=== PATIENT | female | born 1990 | race Caucasian/White ===

== ENCOUNTER 2017-04-22 23:46 | Inpatient (IN) | payer OTHER, BC ==
[2017-04-23] MEDS ORDERED: Methylergonovine 0.2 MG Tab PO PRN (00:22)
[2017-04-23] MEDS ORDERED: Ibuprofen 800 MG Tab PO PRN (00:22)
[2017-04-23] MEDS ORDERED: oxyCODONE 5 MG Tab PO PRN (00:22)
[2017-04-23] MEDS ORDERED: Lanolin 100% Cream 7 GM Tube TOP PRN (00:22)
[2017-04-23] MEDS ORDERED: Witch Hazel Medicated Pads 40/Jar TOP PRN (00:22)
[2017-04-23] MEDS ORDERED: Benzocaine/Menthol 20%-0.5% Spray 78 GM Cannister TOP PRN (00:22)
[2017-04-23] MEDS ORDERED: Docusate Sodium 100 MG Cap PO PRN (00:22)
[2017-04-23] MEDS ORDERED: Hydrocortisone 2.5% Crm 30 GM Tube TOP PRN (00:22)
[2017-04-23] MEDS ORDERED: Bisacodyl 10 MG Supp RECTAL PRN (00:22)
[2017-04-23] MEDS: Acetaminophen 500 MG Tab PO PRN ×2 (00:30→07:46)
--- NOTE | 2017-04-23 01:54 | OR ---
SURGEON: Emily Chacon M.D. DATE OF PROCEDURE: 04/22/2017 PREOPERATIVE DIAGNOSIS: 38-1/7 week intrauterine , spontaneous labor. POSTOPERATIVE DIAGNOSIS: 38-1/7 week intrauterine , spontaneous labor, and precipitous labor. ANESTHESIA: Local. ESTIMATED BLOOD LOSS: Less than 300 mL. FINDINGS: Liveborn female, score 8 and 9 weighing 2780 g. Placenta spontaneous, Schultze intact with 3 vessels. Second-degree perineal laceration was repaired. COMPLICATIONS: None known. DISPOSITION: Stable to LDRP with . BRIEF HISTORY: This is a 26-year-old female. She is G3, P-1-0-1-1. She presented to labor and delivery earlier in the evening and was sent home shortly after 10:00 p.m. and at that time, she was 2 cm dilated, having been observed for several hours and she went home. Contractions became much more intense. She called 911 and EMS came and brought her to the emergency room. I met them in the ambulance. At this time. She was complete at +5 station, but with a tight perineum. DESCRIPTION OF PROCEDURE: With the patient in dorsal lithotomy position, the patient pushed over a less than 2 minute time period to a 5+ station, at which time the head was delivered spontaneously and atraumatically over the perineum with support with subsequent delivery of the 's shoulders and body without any difficulty. The was bulb suctioned by nose and mouth. The cord was clamped x2 and cut after it ceased to pulsate. The infant was handed to the mother in the presence of the weaver [place] and the nurses attending delivery. The was a live born female. score 8 and 9. Weight is 2780 g. Cord blood was not collected as the delivery was in the ambulance. The placenta delivered spontaneously, Schultze intact with 3 vessels. Almost immediately after delivery of the infant, the patient was then transported to the OB unit where inspection of the perineum revealed a second-degree perineal laceration, 20 mL of 1% lidocaine were injected into the perineal tissue. A running lock suture of 2-0 Polysorb was utilized to reapproximate the vaginal mucosa, a running suture of the same for the perineal followed by subcuticular suture. Final sponge, needle, and instrument counts were correct. There were no known complications. The remains in LDRP with the mother in good condition. LIBAN PERALTA /[id number]
[2017-04-23] MEDS ORDERED: Misoprostol 200 MCG Tab PO PRN (02:04)
[2017-04-23] MEDS ORDERED: Lidocaine 1% 50 ML MDV INJECT PRN (02:04)
[2017-04-23] MEDS ORDERED: Water For Irrigation,Sterile 1,000 ML Container IRR PRN (02:04)
[2017-04-23] MEDS ORDERED: Nalbuphine 10 MG/1 ML Vial IVPUSH PRN (02:04)
[2017-04-23] MEDS ORDERED: Butorphanol 1 MG/ML SDV IVPUSH PRN (02:04)
[2017-04-23] MEDS ORDERED: Methylergonovine 0.2 MG/1 ML Amp IM PRN (02:04)
[2017-04-23] MEDS ORDERED: Sodium Chloride 0.9% 10 ML Syringe FLUSH PRN (02:04)
[2017-04-23] MEDS ORDERED: Carboprost Tromethamine 250 MCG/1 ML Amp IM PRN (02:04)
[2017-04-23] MEDS ORDERED: Sodium Chloride 0.9% 2.5 ML Syringe FLUSH PRN (02:04)
[2017-04-23] MEDS ORDERED: Lactated Ringers 1,000 ML IV SCH (02:15)
[2017-04-23] MEDS ORDERED: Oxytocin/0.9 % Sodium Chloride 30 UNIT/500 ML BAG IV SCH (02:15)
--- NOTE | 2017-04-23 08:36 | PCM.PNPP ---
<Kelsy Lowery - Last Filed: 04/23/17 08:37> - General Info Date of Service: 04/23/17 Functional Status: Reports: Pain Controlled, Tolerating Diet, Ambulating, Urinating - Review of Systems General: Denies: Fever, Weakness, Fatigue Pulmonary: Denies: Shortness of Breath, Pleuritic Chest Pain, Cough Cardiovascular: Denies: Chest Pain, Palpitations, Dyspnea on Exertion Gastrointestinal: Denies: Abdominal Pain, Constipation Genitourinary: Denies: Dysuria Psychiatric: Reports: No Symptoms - General Info Date of Service: 04/23/17 - Patient Data Vital Signs - Most Recent: Last Vital Signs Temp 36.8 C 04/23/17 04:00 Pulse 72 04/23/17 04:00 Resp 17 04/23/17 04:00 BP 109/65 04/23/17 04:00 Pulse Ox 97 04/23/17 04:00 Weight - Most Recent: 188 lb Lab Results - Last 24 Hours: Laboratory Results - last 24 hr 04/22/17 04/22/17 Range/Units 23:47 23:47 WBC 14.07 H (4.0-11.0) K/uL RBC 4.80 (4.30-5.90) M/uL Hgb 15.2 (12.0-16.0) g/dL Hct 43.4 (36.0-46.0) % MCV 90.4 (80.0-98.0) fL MCH 31.7 (27.0-32.0) pg MCHC 35.0 (31.0-37.0) g/dL RDW Std Deviation 44.1 (28.0-62.0) fl RDW Coeff of Jeanmarie 13 (11.0-15.0) % Plt Count 206 (150-400) K/uL MPV 11.30 (7.40-12.00) fL Nucleated RBC % 0.0 /100WBC Nucleated RBCs # 0 K/uL Blood Type O POSITIVE Antibody Screen NEGATIVE Med Orders - Current: Current Medications Acetaminophen (Tylenol Extra Strength) 1,000 mg PO Q4H PRN PRN Reason: Pain Last Admin: 04/23/17 07:46 Dose: 1,000 mg Benzocaine/Menthol (Dermoplast Pain Relief 20%-0.5% [place]) 78 gm TOP ASDIRECTED PRN PRN Reason: Perineal Comfort Measure Last Admin: 04/23/17 02:51 Dose: 1 canister Bisacodyl (Dulcolax) 10 mg RECTAL .ONCE PRN PRN Reason: Constipation Butorphanol Tartrate (Stadol) 1 mg IVPUSH Q1H PRN PRN Reason: Pain Carboprost Tromethamine (Hemabate Ds) 250 mcg IM ASDIRECTED PRN PRN Reason: Post Hemorrhage Docusate Sodium (Colace) 100 mg PO BID PRN PRN Reason: Constipation Emollient Ointment (Lansinoh Hpa) 0 gm TOP ASDIRECTED PRN PRN Reason: Sore Nipples Hydrocortisone (Proctozone-Hc 2.5% Crm) 1 gm TOP .Q6H PRN PRN Reason: Itching Lactated Ringer's (Ringers, Lactated) 1,000 mls @ 150 mls/hr IV ASDIRECTED [facility] Oxytocin/Sodium Chloride (Oxytocin 30 Unit/500 Ml-Ns) 30 unit in 500 mls @ 999 mls/hr IV TITRATE [facility] Ibuprofen (Motrin) 800 mg PO Q6H PRN PRN Reason: Pain Lidocaine HCl (Xylocaine 1%) 50 ml INJECT .ONCE PRN PRN Reason: Laceration repair Methylergonovine Maleate (Methergine) 0.2 mg PO ASDIRECTED PRN PRN Reason: excessive vaginal bleeding Methylergonovine Maleate (Methergine) 0.2 mg IM ASDIRECTED PRN PRN Reason: Post Hemorrhage Misoprostol (Cytotec) 200 mcg PO .ONCE PRN PRN Reason: Post Hemorrhage Nalbuphine HCl (Nubain) 10 mg IVPUSH Q1H PRN PRN Reason: Pain (severe 7-10) Oxycodone HCl (Oxycodone) 5 mg PO Q2H PRN PRN Reason: Pain Sodium Chloride (Saline Flush) 10 ml FLUSH ASDIRECTED PRN PRN Reason: Keep Vein Open Sodium Chloride (Saline Flush) 2.5 ml FLUSH ASDIRECTED PRN PRN Reason: Keep Vein Open Sterile Water (Sterile Water For Irrigation) 1,000 ml IRR ASDIRECTED PRN PRN Reason: delivery Witch Tyra (Tucks) 1 pad TOP ASDIRECTED PRN PRN Reason: comfort care Last Admin: 04/23/17 02:52 Dose: 1 tub - Infant Interaction Disposition, : [place] in Room with Family Infant Feeding: Attempted ; Nursed Fair/Poor - Recovery Exam Fundal Tone: Firm Fundal Level: At Umbilicus Fundal Placement: Midline Lochia Amount: Small Episiotomy/Laceration: Approximated Bladder Status: Voiding Urinary Elimination: Voided - Exam General: Alert, Oriented Neck: Supple Lungs: Clear to Auscultation, Normal Respiratory Effort Cardiovascular: Regular Rate, Regular Rhythm GI/Abdominal Exam: Normal Bowel Sounds, Soft, Non-Tender, No Organomegaly, No Distention, No Abnormal Bruit, No Mass, Pelvis Stable Psy/Mental Status: Alert, Normal Affect, Normal Mood - Problem List & Annotations (1) Precipitate labour, delivered SNOMED Code(s): 63198929 Code(s): O62.3 - PRECIPITATE LABOR Status: Acute Current Visit: Yes - Problem List Review Problem List Initiated/Reviewed/Updated: Yes - Assessment Assessment:: PPD #1 from vaginal delivery, precipitous labor. Minimal pain and lochia. Breast feeding well. Aim for discharge tomorrow AM - Plan Plan:: Continue routine post- cares. Anticipate discharge home tomorrow. <Liza Martinez - Last Filed: 04/23/17 18:41> - Patient Data Vital Signs - Most Recent: Last Vital Signs Temp 36.9 C 04/23/17 13:19 Pulse 73 04/23/17 13:19 Resp 14 04/23/17 13:19 BP 139/75 04/23/17 13:19 Pulse Ox 96 04/23/17 13:19 I&O - Last 24 Hours: Intake & Output 04/23/17 04/23/17 04/23/17 06:59 14:59 22:59 Output Total 600 Balance -600 Lab Results - Last 24 Hours: Laboratory Results - last 24 hr 04/22/17 04/22/17 Range/Units 23:47 23:47 WBC 14.07 H (4.0-11.0) K/uL RBC 4.80 (4.30-5.90) M/uL Hgb 15.2 (12.0-16.0) g/dL Hct 43.4 (36.0-46.0) % MCV 90.4 (80.0-98.0) fL MCH 31.7 (27.0-32.0) pg MCHC 35.0 (31.0-37.0) g/dL RDW Std Deviation 44.1 (28.0-62.0) fl RDW Coeff of Jeanmarie 13 (11.0-15.0) % Plt Count 206 (150-400) K/uL MPV 11.30 (7.40-12.00) fL Nucleated RBC % 0.0 /100WBC Nucleated RBCs # 0 K/uL Blood Type O POSITIVE Antibody Screen NEGATIVE Med Orders - Current: Current Medications Acetaminophen (Tylenol Extra Strength) 1,000 mg PO Q4H PRN PRN Reason: Pain Last Admin: 04/23/17 07:46 Dose: 1,000 mg Benzocaine/Menthol (Dermoplast Pain Relief 20%-0.5% [place]) 78 gm TOP ASDIRECTED PRN PRN Reason: Perineal Comfort Measure Last Admin: 04/23/17 02:51 Dose: 1 canister Bisacodyl (Dulcolax) 10 mg RECTAL .ONCE PRN PRN Reason: Constipation Butorphanol Tartrate (Stadol) 1 mg IVPUSH Q1H PRN PRN Reason: Pain Carboprost Tromethamine (Hemabate Ds) 250 mcg IM ASDIRECTED PRN PRN Reason: Post Hemorrhage Docusate Sodium (Colace) 100 mg PO BID PRN PRN Reason: Constipation Emollient Ointment (Lansinoh Hpa) 0 gm TOP ASDIRECTED PRN PRN Reason: Sore Nipples Last Admin: 04/23/17 10:57 Dose: 7 gm Hydrocortisone (Proctozone-Hc 2.5% Crm) 1 gm TOP .Q6H PRN PRN Reason: Itching Lactated Ringer's (Ringers, Lactated) 1,000 mls @ 150 mls/hr IV ASDIRECTED [facility] Oxytocin/Sodium Chloride (Oxytocin 30 Unit/500 Ml-Ns) 30 unit in 500 mls @ 999 mls/hr IV TITRATE [facility] Last Admin: 04/23/17 00:30 Dose: 999 mls/hr Ibuprofen (Motrin) 800 mg PO Q6H PRN PRN Reason: Pain Lidocaine HCl (Xylocaine 1%) 50 ml INJECT .ONCE PRN PRN Reason: Laceration repair Last Admin: 04/23/17 00:30 Dose: 50 ml Methylergonovine Maleate (Methergine) 0.2 mg PO ASDIRECTED PRN PRN Reason: excessive vaginal bleeding Methylergonovine Maleate (Methergine) 0.2 mg IM ASDIRECTED PRN PRN Reason: Post Hemorrhage Misoprostol (Cytotec) 200 mcg PO .ONCE PRN PRN Reason: Post Hemorrhage Nalbuphine HCl (Nubain) 10 mg IVPUSH Q1H PRN PRN Reason: Pain (severe 7-10) Oxycodone HCl (Oxycodone) 5 mg PO Q2H PRN PRN Reason: Pain Last Admin: 04/23/17 00:30 Dose: 5 mg Sodium Chloride (Saline Flush) 10 ml FLUSH ASDIRECTED PRN PRN Reason: Keep Vein Open Sodium Chloride (Saline Flush) 2.5 ml FLUSH ASDIRECTED PRN PRN Reason: Keep Vein Open Sterile Water (Sterile Water For Irrigation) 1,000 ml IRR ASDIRECTED PRN PRN Reason: delivery Last Admin: 04/23/17 00:30 Dose: 1,000 ml Witch Tyra (Tucks) 1 pad TOP ASDIRECTED PRN PRN Reason: comfort care Last Admin: 04/23/17 02:52 Dose: 1 tub - Assessment Assessment:: Agree with above assessment - Plan Plan:: Patient reviewed independently- agree with plan.
--- NOTE | 2017-04-24 08:22 | PCM.PNPP ---
- General Info Date of Service: 04/24/17 Functional Status: Reports: Pain Controlled, Tolerating Diet, Ambulating, Urinating - Review of Systems General: Denies: Fever, Malaise, Chills Pulmonary: Reports: Cough. Denies: Shortness of Breath, Pleuritic Chest Pain Cardiovascular: Denies: Chest Pain, Palpitations Genitourinary: Denies: Frequency, Burning, Urgency, Incontinence - General Info Date of Service: 04/24/17 - Patient Data Vital Signs - Most Recent: Last Vital Signs Temp 36.5 C 04/24/17 04:00 Pulse 76 04/23/17 20:00 Resp 16 04/24/17 04:00 BP 113/75 04/24/17 04:00 Pulse Ox 97 04/24/17 04:00 Weight - Most Recent: 188 lb Lab Results - Last 24 Hours: Laboratory Results - last 24 hr 04/24/17 Range/Units 05:23 Hgb 12.3 (12.0-16.0) g/dL Hct 35.7 L (36.0-46.0) % Med Orders - Current: Current Medications Acetaminophen (Tylenol Extra Strength) 1,000 mg PO Q4H PRN PRN Reason: Pain Last Admin: 04/23/17 07:46 Dose: 1,000 mg Benzocaine/Menthol (Dermoplast Pain Relief 20%-0.5% [place]) 78 gm TOP ASDIRECTED PRN PRN Reason: Perineal Comfort Measure Last Admin: 04/23/17 02:51 Dose: 1 canister Bisacodyl (Dulcolax) 10 mg RECTAL .ONCE PRN PRN Reason: Constipation Butorphanol Tartrate (Stadol) 1 mg IVPUSH Q1H PRN PRN Reason: Pain Carboprost Tromethamine (Hemabate Ds) 250 mcg IM ASDIRECTED PRN PRN Reason: Post Hemorrhage Docusate Sodium (Colace) 100 mg PO BID PRN PRN Reason: Constipation Last Admin: 04/23/17 21:01 Dose: 100 mg Emollient Ointment (Lansinoh Hpa) 0 gm TOP ASDIRECTED PRN PRN Reason: Sore Nipples Last Admin: 04/23/17 10:57 Dose: 7 gm Hydrocortisone (Proctozone-Hc 2.5% Crm) 1 gm TOP .Q6H PRN PRN Reason: Itching Lactated Ringer's (Ringers, Lactated) 1,000 mls @ 150 mls/hr IV ASDIRECTED [facility] Oxytocin/Sodium Chloride (Oxytocin 30 Unit/500 Ml-Ns) 30 unit in 500 mls @ 999 mls/hr IV TITRATE [facility] Last Admin: 04/23/17 00:30 Dose: 999 mls/hr Ibuprofen (Motrin) 800 mg PO Q6H PRN PRN Reason: Pain Lidocaine HCl (Xylocaine 1%) 50 ml INJECT .ONCE PRN PRN Reason: Laceration repair Last Admin: 04/23/17 00:30 Dose: 50 ml Methylergonovine Maleate (Methergine) 0.2 mg PO ASDIRECTED PRN PRN Reason: excessive vaginal bleeding Methylergonovine Maleate (Methergine) 0.2 mg IM ASDIRECTED PRN PRN Reason: Post Hemorrhage Misoprostol (Cytotec) 200 mcg PO .ONCE PRN PRN Reason: Post Hemorrhage Nalbuphine HCl (Nubain) 10 mg IVPUSH Q1H PRN PRN Reason: Pain (severe 7-10) Oxycodone HCl (Oxycodone) 5 mg PO Q2H PRN PRN Reason: Pain Last Admin: 04/23/17 00:30 Dose: 5 mg Sodium Chloride (Saline Flush) 10 ml FLUSH ASDIRECTED PRN PRN Reason: Keep Vein Open Sodium Chloride (Saline Flush) 2.5 ml FLUSH ASDIRECTED PRN PRN Reason: Keep Vein Open Sterile Water (Sterile Water For Irrigation) 1,000 ml IRR ASDIRECTED PRN PRN Reason: delivery Last Admin: 04/23/17 00:30 Dose: 1,000 ml Witch Tyra (Tucks) 1 pad TOP ASDIRECTED PRN PRN Reason: comfort care Last Admin: 04/23/17 02:52 Dose: 1 tub - Infant Interaction Disposition, : in Room with Family Infant Feeding: Attempted ; Nursed Fair/Poor, Continues to Breastfeed Support Person: - Recovery Exam Fundal Tone: Firm Fundal Level: 1 Fingerbreadths Below Umbilicus Fundal Placement: Midline Lochia Amount: Scant Lochia Color: Rubra/Red Perineum Description: Intact, Minimal Bruising/Swelling Episiotomy/Laceration: Approximated Bladder Status: Voiding Urinary Elimination: Voided - Exam General: Alert, Oriented Lungs: Clear to Auscultation, Normal Respiratory Effort Cardiovascular: Regular Rate, Regular Rhythm GI/Abdominal Exam: Normal Bowel Sounds Extremities: Non-Tender, Pedal Edema Psy/Mental Status: Alert, Normal Affect, Normal Mood - Problem List Review Problem List Initiated/Reviewed/Updated: Yes - Assessment Assessment:: PPD#2 s/p , stable and afebrile Stable for discharge - Plan Plan:: Discharge instructions reviewed Nothing in the vagina for 6 weeks Continue PNV Bleeding and infection precautions reviewed May use OTC pain meds PRN Follow up in the clinic in 6 weeks
[2017-04-24 10:04] VITALS: BP 119/76
== END 2017-04-24 11:25 | disposition home or self-care (01) | DRG 560 ==
LOC: MW.OBCHECK 23:46 → OBSVTOIN 23:48 → MW.OB 23:48
PROVIDERS: ADMIT Obstetrics & Gynecology; ATTEND Obstetrics & Gynecology
PROC: 10E0XZZ Delivery of Products of Conception, External Approach (ICD-10-PCS; principal; 2017-04-22)
PROC: 0KQM0ZZ Repair Perineum Muscle, Open Approach (ICD-10-PCS; 2017-04-22)
DX: O70.1 Second degree perineal laceration during delivery (principal); Z3A.38 38 weeks gestation of pregnancy; Z37.0 Single live birth; Z34.93 Encounter for supervision of normal pregnancy, unspecified, third trimester
CPT/HCPCS: 36415; 59025; 59409; 85014; 85018; 85027; 86850; 86900; 86901; A9270-GY; J2590

== ENCOUNTER 2018-04-11 18:46 | Inpatient (IN) | payer BC ==
[2018-04-11] MEDS ORDERED: Water For Irrigation,Sterile 1,000 ML Container IRR PRN (19:57)
[2018-04-11] MEDS ORDERED: Misoprostol 200 MCG Tab PO PRN (19:57)
[2018-04-11] MEDS ORDERED: Sodium Chloride 0.9% 10 ML Syringe FLUSH PRN (19:57)
[2018-04-11] MEDS ORDERED: Lidocaine 1% 50 ML MDV INJECT PRN (19:57)
[2018-04-11] MEDS ORDERED: Tranexamic Acid 1,000 MG in Sodium Chloride 0.9% 100 ML IV PRN (19:57)
[2018-04-11] MEDS ORDERED: Butorphanol 1 MG/ML SDV IVPUSH PRN (19:57)
[2018-04-11] MEDS ORDERED: Sodium Chloride 0.9% 2.5 ML Syringe FLUSH PRN (19:57)
[2018-04-11] MEDS ORDERED: Carboprost Tromethamine 250 MCG/1 ML Amp IM PRN (19:57)
[2018-04-11] MEDS ORDERED: Methylergonovine 0.2 MG/1 ML Amp IM PRN ×2 (19:57→23:19)
[2018-04-11] MEDS ORDERED: Nalbuphine 10 MG/1 ML Vial IVPUSH PRN (19:57)
[2018-04-11] MEDS ORDERED: Oxytocin/0.9 % Sodium Chloride 30 UNIT/500 ML BAG IV SCH (20:00)
[2018-04-11] MEDS: Lactated Ringers 1,000 ML IV SCH ×3 (20:25→22:57)
--- NOTE | 2018-04-11 21:59 | PCM.PREANE ---
Preanesthetic Assessment - Anesthesia/Transfusion/Family Hx Anesthesia History: Prior Anesthesia Without Reaction Family History of Anesthesia Reaction: No Transfusion History: No Prior Transfusion(s) - Review of Systems General: No Symptoms Pulmonary: No Symptoms Cardiovascular: No Symptoms Gastrointestinal: No Symptoms Neurological: No Symptoms Other: Reports: None - Physical Assessment NPO Status Date: 04/11/18 NPO Status Time: 12:00 Height: 1.63 m Weight: 90.719 kg ASA Class: 1 Mental Status: Alert & Oriented x3 Dentition: Reports: Normal Dentition ROM/Head Extension: Full - Lab Values: Laboratory Last Values WBC 12.04 K/uL (4.0-11.0) H 04/11/18 20:15 RBC 4.67 M/uL (4.30-5.90) 04/11/18 20:15 Hgb 14.6 g/dL (12.0-16.0) 04/11/18 20:15 Hct 41.8 % (36.0-46.0) 04/11/18 20:15 MCV 89.5 fL (80.0-98.0) 04/11/18 20:15 MCH 31.3 pg (27.0-32.0) 04/11/18 20:15 MCHC 34.9 g/dL (31.0-37.0) 04/11/18 20:15 RDW Std Deviation 43.0 fl (28.0-62.0) 04/11/18 20:15 RDW Coeff of Jeanmarie 13 % (11.0-15.0) 04/11/18 20:15 Plt Count 199 K/uL (150-400) 04/11/18 20:15 MPV 10.90 fL (7.40-12.00) 04/11/18 20:15 Nucleated RBC % 0.0 /100WBC 04/11/18 20:15 Nucleated RBCs # 0 K/uL 04/11/18 20:15 Blood Type O POSITIVE 04/11/18 20:15 Antibody Screen NEGATIVE 04/11/18 20:15 - Allergies Allergies/Adverse Reactions: Allergies Allergy/AdvReac Type Severity Reaction Status Date / Time latex Allergy Hives Verified 04/22/17 17:32 - Acknowledgements Anesthesia Type Planned: Epidural Pt an Appropriate Candidate for the Planned Anesthesia: Yes Alternatives and Risks of Anesthesia Discussed w Pt/Guardian: Yes Pt/Guardian Understands and Agrees with Anesthesia Plan: Yes PreAnesthesia Questionnaire [employer]IC[employer] History: Reports: , Spontaneous - HOME MEDS Home Medications: Home Meds Vits #93/Iron Fum/FA [ Formula Tablet] 1 each PO DAILY [History] Ranitidine [Zantac] 150 mg PO BID PRN 04/11/18 [History] - CURRENT (IN HOUSE) MEDS Current Meds: Current Medications Butorphanol Tartrate (Stadol) 1 mg IVPUSH ASDIRECTED PRN PRN Reason: Pain Carboprost Tromethamine (Hemabate Ds) 250 mcg IM ASDIRECTED PRN PRN Reason: Post Hemorrhage Tranexamic Acid 1,000 mg/ (Sodium Chloride) 110 mls @ 660 mls/hr IV ONETIME PRN PRN Reason: Bleeding Lactated Ringer's (Ringers, Lactated) 1,000 mls @ 150 mls/hr IV ASDIRECTED [facility] Last Admin: 04/11/18 21:56 Dose: 999 mls/hr Oxytocin/Sodium Chloride (Oxytocin 30 Unit/500 Ml-Ns) 30 unit in 500 mls @ 999 mls/hr IV TITRATE [facility] Lidocaine HCl (Xylocaine 1%) 50 ml INJECT ONETIME PRN PRN Reason: Laceration repair Methylergonovine Maleate (Methergine) 0.2 mg IM ASDIRECTED PRN PRN Reason: Post Hemorrhage Misoprostol (Cytotec) 200 mcg PO ONETIME PRN PRN Reason: Post Hemorrhage Nalbuphine HCl (Nubain) 10 mg IVPUSH ASDIRECTED PRN PRN Reason: Pain (severe 7-10) Sodium Chloride (Saline Flush) 10 ml FLUSH ASDIRECTED PRN PRN Reason: Keep Vein Open Sodium Chloride (Saline Flush) 2.5 ml FLUSH ASDIRECTED PRN PRN Reason: Keep Vein Open Sterile Water (Sterile Water For Irrigation) 1,000 ml IRR ASDIRECTED PRN PRN Reason: delivery Discontinued Medications Fentanyl/Bupivacaine HCl (Fsglnhgt-Hsjur-Sa 2 Mcg/Ml-0.125%) Confirm Administered Dose 100 mls @ as directed [facility] ONE Stop: 04/11/18 21:32
--- NOTE | 2018-04-11 22:02 | PCM.PRNOTE ---
- Free Text/Narrative Note: Anes Note Patient request epidural for L&D. Sitting position. Level L3-L4. Midline approach. Sterile technique. Chloraprep to lumbar region. Sterile fenestrated drape applied. Epidural space easily achieved single attempt using CARIN technique. CARIN at 4 cm. Cath threaded 5 cm with ease. Sterile dressing applied. Test dose negative. Loading dose 10 cc 0.125% ropivicain with 2 mcg/cc fentanyl in slow divided doses. Pump started at 8 cc/hr with 6 cc q 20 min prn bolus. 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
[2018-04-11] MEDS ORDERED: Docusate Sodium 100 MG Cap PO PRN (23:19)
[2018-04-11] MEDS ORDERED: Acetaminophen 500 MG Tab PO PRN ×2 (23:19)
[2018-04-11] MEDS ORDERED: Witch Hazel Medicated Pads 40/Jar TOP PRN (23:19)
[2018-04-11] MEDS ORDERED: Bisacodyl 10 MG Supp RECTAL PRN (23:19)
[2018-04-11] MEDS ORDERED: Ibuprofen 400 MG Tab PO PRN (23:19)
[2018-04-11] MEDS ORDERED: Lanolin 100% Cream 7 GM Tube TOP PRN (23:19)
[2018-04-11] MEDS ORDERED: Benzocaine/Menthol 20%-0.5% Spray 78 GM Cannister TOP PRN (23:19)
[2018-04-11] MEDS ORDERED: oxyCODONE 5 MG Tab PO PRN (23:19)
--- NOTE | 2018-04-11 23:21 | PCM.DEL ---
L & D Note - General Info Date of Service: 04/11/18 Mother's Due Date: 04/22/18 - Delivery Note Labor: Spontaneous Delivery Outcome: Livebirth Infant Delivery Method: Spontaneous Vaginal Delivery-Single Delivery Mode: Spontaneous Presentation: Right Occiput Posterior (ROP) Nuchal Cord: None Anesthesia Type: Epidural Amniotic Fluid Description: Clear Episiotomy Type: None Laceration: 2nd Degree Suture type: Vicryl Suture size: 3-0 Placenta: Intact, Spontaneous Cord: 3 Vessels Estimated Blood Loss: 300 Resuscitation Needed: No : Stimulated, [place] Used Provider: Emily Chacon (Sebastianbryanna Farmeron, MS4) Score 1 min: 8 Score 5 min: 9 Delivery Comments (Free Text/Narrative):: Delivery of viable female infant weighing 6 pounds, 0 ounces. - General Info Date of Service: 04/11/18 Functional Status: Reports: Pain Controlled - Patient Data Weight - Most Recent: 200 lb 0.004 oz Lab Results Last 24 Hours: Laboratory Results - last 24 hr 04/11/18 04/11/18 Range/Units 20:15 20:15 WBC 12.04 H (4.0-11.0) K/uL RBC 4.67 (4.30-5.90) M/uL Hgb 14.6 (12.0-16.0) g/dL Hct 41.8 (36.0-46.0) % MCV 89.5 (80.0-98.0) fL MCH 31.3 (27.0-32.0) pg MCHC 34.9 (31.0-37.0) g/dL RDW Std Deviation 43.0 (28.0-62.0) fl RDW Coeff of Jeanmarie 13 (11.0-15.0) % Plt Count 199 (150-400) K/uL MPV 10.90 (7.40-12.00) fL Nucleated RBC % 0.0 /100WBC Nucleated RBCs # 0 K/uL Blood Type O POSITIVE Antibody Screen NEGATIVE Med Orders - Current: Current Medications Butorphanol Tartrate (Stadol) 1 mg IVPUSH ASDIRECTED PRN PRN Reason: Pain Carboprost Tromethamine (Hemabate Ds) 250 mcg IM ASDIRECTED PRN PRN Reason: Post Hemorrhage Tranexamic Acid 1,000 mg/ (Sodium Chloride) 110 mls @ 660 mls/hr IV ONETIME PRN PRN Reason: Bleeding Lactated Ringer's (Ringers, Lactated) 1,000 mls @ 150 mls/hr IV ASDIRECTED [facility] Last Admin: 04/11/18 22:57 Dose: 150 mls/hr Oxytocin/Sodium Chloride (Oxytocin 30 Unit/500 Ml-Ns) 30 unit in 500 mls @ 999 mls/hr IV TITRATE [facility] Last Admin: 04/11/18 22:51 Dose: 999 mls/hr Lidocaine HCl (Xylocaine 1%) 50 ml INJECT ONETIME PRN PRN Reason: Laceration repair Methylergonovine Maleate (Methergine) 0.2 mg IM ASDIRECTED PRN PRN Reason: Post Hemorrhage Misoprostol (Cytotec) 200 mcg PO ONETIME PRN PRN Reason: Post Hemorrhage Nalbuphine HCl (Nubain) 10 mg IVPUSH ASDIRECTED PRN PRN Reason: Pain (severe 7-10) Sodium Chloride (Saline Flush) 10 ml FLUSH ASDIRECTED PRN PRN Reason: Keep Vein Open Sodium Chloride (Saline Flush) 2.5 ml FLUSH ASDIRECTED PRN PRN Reason: Keep Vein Open Sterile Water (Sterile Water For Irrigation) 1,000 ml IRR ASDIRECTED PRN PRN Reason: delivery Last Admin: 04/11/18 22:47 Dose: 1,000 ml Discontinued Medications Fentanyl/Bupivacaine HCl (Dguxpdrr-Lkrjv-Ik 2 Mcg/Ml-0.125%) Confirm Administered Dose 100 mls @ as directed STACY [facility] ONE Stop: 04/11/18 21:32 - Problem List Review Problem List Initiated/Reviewed/Updated: Yes - Assessment Assessment:: Spontaneous vaginal delivery with second degree laceration at 38 weeks and 3 days gestation - Plan Plan:: Routine cares
[2018-04-12] MEDS: Ibuprofen 800 MG Tab PO PRN ×4 (01:24→23:28)
--- NOTE | 2018-04-12 04:55 | OR ---
SURGEON: Emily Chacon M.D. DATE OF PROCEDURE: ADDENDUM: The infant was handed to the mother in the presence of the nurse attending delivery. The is a liveborn female, score 8 and 9, weighing 6 pounds 0 ounces, 2710 g. After the cord had ceased to pulsate, it was doubly clamped and cut. Cord blood was collected for cord ABGs as well as routine cord blood sampling. Pitocin was initiated after delivery of the infant to assist with delivery of the placenta which was delivered spontaneously. Schultze intact with 3 vessels. Upon inspection of the pelvis and perineum, there was a small second-degree perineal laceration. There were no vaginal sidewall, cervical, rectal, or periurethral lacerations. The laceration was repaired using a running locked suture of 3-0 Vicryl for the vaginal mucosa, deep running suture on the perineum of the same and a running subcuticular suture of 3-0 Vicryl for the skin. Final sponge, needle, and instrument counts were correct. There were no known complications. Mother and baby remained in LDRP in good condition. LIBAN / FABIAN /[id number]
--- NOTE | 2018-04-12 06:59 | PCM48HPAN ---
Post Anesthesia Note - EVALUATION WITHIN 48HRS OF ANESTHETIC Vital Signs in Normal Range: Yes Patient Participated in Evaluation: Yes Respiratory Function Stable: Yes Airway Patent: Yes Cardiovascular Function Stable: Yes Hydration Status Stable: Yes Pain Control Satisfactory: Yes Nausea and Vomiting Control Satisfactory: Yes Mental Status Recovered: Yes Resp Rate: 18
--- NOTE | 2018-04-12 06:59 | PCM.POSTAN ---
POST ANESTHESIA ASSESSMENT - MENTAL STATUS Mental Status: Alert - RESPIRATORY Respiratory Status: Respiratory Rate WNL - CARDIOVASCULAR CV Status: Pulse Rate WNL - GASTROINTESTINAL GI Status: No Symptoms - POST OP HYDRATION Hydration Status: Adequate & Stable
--- NOTE | 2018-04-12 08:06 | PCM.PNPP ---
<Kelsy Lowery - Last Filed: 04/12/18 08:06> - General Info Date of Service: 04/12/18 Functional Status: Reports: Pain Controlled, Tolerating Diet, Ambulating, Urinating - Review of Systems General: Denies: Fever, Weakness, Fatigue Pulmonary: Denies: Shortness of Breath, Pleuritic Chest Pain, Cough Cardiovascular: Denies: Chest Pain, Palpitations, Dyspnea on Exertion Gastrointestinal: Denies: Abdominal Pain Genitourinary: Denies: Dysuria - General Info Date of Service: 04/12/18 - Patient Data Vital Signs - Most Recent: Last Vital Signs Temp 36.6 C 04/12/18 06:56 Pulse 79 04/12/18 06:56 Resp 18 04/12/18 06:59 BP 118/71 04/12/18 06:56 Pulse Ox 96 04/12/18 06:56 Weight - Most Recent: 90.719 kg Lab Results - Last 24 Hours: Laboratory Results - last 24 hr 04/11/18 04/11/18 04/11/18 Range/Units 20:15 20:15 22:50 WBC 12.04 H (4.0-11.0) K/uL RBC 4.67 (4.30-5.90) M/uL Hgb 14.6 (12.0-16.0) g/dL Hct 41.8 (36.0-46.0) % MCV 89.5 (80.0-98.0) fL MCH 31.3 (27.0-32.0) pg MCHC 34.9 (31.0-37.0) g/dL RDW Std Deviation 43.0 (28.0-62.0) fl RDW Coeff of Jeanmarie 13 (11.0-15.0) % Plt Count 199 (150-400) K/uL MPV 10.90 (7.40-12.00) fL Nucleated RBC % 0.0 /100WBC Nucleated RBCs # 0 K/uL Cord ABG pH 7.148 L (7.18-7.38) Cord ABG Base Excess -9 (-10--2) Cord VBG pH 7.159 L (7.25-7.45) Cord VBG Base Excess -9 (-10--2) Blood Type O POSITIVE Antibody Screen NEGATIVE 04/12/18 Range/Units 04:48 WBC (4.0-11.0) K/uL RBC (4.30-5.90) M/uL Hgb 13.6 (12.0-16.0) g/dL Hct 39.7 (36.0-46.0) % MCV (80.0-98.0) fL MCH (27.0-32.0) pg MCHC (31.0-37.0) g/dL RDW Std Deviation (28.0-62.0) fl RDW Coeff of Jeanmarie (11.0-15.0) % Plt Count (150-400) K/uL MPV (7.40-12.00) fL Nucleated RBC % /100WBC Nucleated RBCs # K/uL Cord ABG pH (7.18-7.38) Cord ABG Base Excess (-10--2) Cord VBG pH (7.25-7.45) Cord VBG Base Excess (-10--2) Blood Type Antibody Screen Med Orders - Current: Current Medications Acetaminophen (Tylenol Extra Strength) 500 mg PO Q4H PRN PRN Reason: Pain Last Admin: 04/12/18 02:45 Dose: 500 mg Acetaminophen (Tylenol Extra Strength) 1,000 mg PO Q4H PRN PRN Reason: Pain Benzocaine/Menthol (Dermoplast Pain Relief 20%-0.5% [place]) 78 gm TOP ASDIRECTED PRN PRN Reason: Perineal Comfort Measure Last Admin: 04/12/18 00:44 Dose: 78 gm Bisacodyl (Dulcolax) 10 mg RECTAL ONETIME PRN PRN Reason: Constipation Docusate Sodium (Colace) 100 mg PO BID PRN PRN Reason: Constipation Emollient Ointment (Lansinoh Hpa) 0 gm TOP ASDIRECTED PRN PRN Reason: Sore Nipples Ibuprofen (Motrin) 400 mg PO Q4H PRN PRN Reason: Pain Ibuprofen (Motrin) 800 mg PO Q6H PRN PRN Reason: Pain Last Admin: 04/12/18 01:24 Dose: 800 mg Methylergonovine Maleate (Methergine) 0.2 mg IM ONETIME PRN PRN Reason: Excessive Vaginal Bleeding Oxycodone HCl (Oxycodone) 5 mg PO Q2H PRN PRN Reason: Pain Last Admin: 04/12/18 02:46 Dose: 5 mg Witch Tyra (Tucks) 1 pad TOP ASDIRECTED PRN PRN Reason: comfort care Last Admin: 04/12/18 00:44 Dose: 1 pad Discontinued Medications Butorphanol Tartrate (Stadol) 1 mg IVPUSH ASDIRECTED PRN PRN Reason: Pain Carboprost Tromethamine (Hemabate Ds) 250 mcg IM ASDIRECTED PRN PRN Reason: Post Hemorrhage Tranexamic Acid 1,000 mg/ (Sodium Chloride) 110 mls @ 660 mls/hr IV ONETIME PRN PRN Reason: Bleeding Lactated Ringer's (Ringers, Lactated) 1,000 mls @ 150 mls/hr IV ASDIRECTED CHINTAN Last Admin: 04/11/18 22:57 Dose: 150 mls/hr Oxytocin/Sodium Chloride (Oxytocin 30 Unit/500 Ml-Ns) 30 unit in 500 mls @ 999 mls/hr IV TITRATE [facility] Last Admin: 04/11/18 22:51 Dose: 999 mls/hr Fentanyl/Bupivacaine HCl (Rqrgdhfu-Pfstw-Tl 2 Mcg/Ml-0.125%) Confirm Administered Dose 100 mls @ as directed EP .K-MED ONE Stop: 04/11/18 21:32 Lidocaine HCl (Xylocaine 1%) 50 ml INJECT ONETIME PRN PRN Reason: Laceration repair Methylergonovine Maleate (Methergine) 0.2 mg IM ASDIRECTED PRN PRN Reason: Post Hemorrhage Misoprostol (Cytotec) 200 mcg PO ONETIME PRN PRN Reason: Post Hemorrhage Nalbuphine HCl (Nubain) 10 mg IVPUSH ASDIRECTED PRN PRN Reason: Pain (severe 7-10) Sodium Chloride (Saline Flush) 10 ml FLUSH ASDIRECTED PRN PRN Reason: Keep Vein Open Sodium Chloride (Saline Flush) 2.5 ml FLUSH ASDIRECTED PRN PRN Reason: Keep Vein Open Sterile Water (Sterile Water For Irrigation) 1,000 ml IRR ASDIRECTED PRN PRN Reason: delivery Last Admin: 04/11/18 22:47 Dose: 1,000 ml - Infant Interaction Infant Disposition, : [place] in Room with Family Infant Feeding: Breastfed ; Nursed Well Support Person: - Recovery Exam Fundal Tone: Firm Fundal Level: 1 Fingerbreadths Above Umbilicus Fundal Placement: Midline Lochia Amount: Scant, Small Lochia Color: Rubra/Red Perineum Description: Edematous Episiotomy/Laceration: Approximated Bladder Status: Voiding - Exam General: Alert, Oriented Neck: Supple Lungs: Clear to Auscultation, Normal Respiratory Effort Cardiovascular: Regular Rate, Regular Rhythm GI/Abdominal Exam: Normal Bowel Sounds, Soft, Non-Tender, No Mass Extremities: Normal Inspection, Normal Capillary Refill, Pedal Edema (trace) Skin: Warm, Dry, Intact Psy/Mental Status: Alert - Problem List Review Problem List Initiated/Reviewed/Updated: Yes - Assessment Assessment:: PPD #1 Minimal pain and lochia. Breast feeding well. Anticipate discharge home tomorrow AM. - Plan Plan:: Continue routine post- cares. <Emily Chacon - Last Filed: 04/12/18 08:48> - Patient Data Vital Signs - Most Recent: Last Vital Signs Temp 36.6 C 04/12/18 06:56 Pulse 79 04/12/18 06:56 Resp 18 04/12/18 06:59 BP 118/71 04/12/18 06:56 Pulse Ox 96 04/12/18 06:56 Lab Results - Last 24 Hours: Laboratory Results - last 24 hr 04/11/18 04/11/18 04/11/18 Range/Units 20:15 20:15 22:50 WBC 12.04 H (4.0-11.0) K/uL RBC 4.67 (4.30-5.90) M/uL Hgb 14.6 (12.0-16.0) g/dL Hct 41.8 (36.0-46.0) % MCV 89.5 (80.0-98.0) fL MCH 31.3 (27.0-32.0) pg MCHC 34.9 (31.0-37.0) g/dL RDW Std Deviation 43.0 (28.0-62.0) fl RDW Coeff of Jeanmarie 13 (11.0-15.0) % Plt Count 199 (150-400) K/uL MPV 10.90 (7.40-12.00) fL Nucleated RBC % 0.0 /100WBC Nucleated RBCs # 0 K/uL Cord ABG pH 7.148 L (7.18-7.38) Cord ABG Base Excess -9 (-10--2) Cord VBG pH 7.159 L (7.25-7.45) Cord VBG Base Excess -9 (-10--2) Blood Type O POSITIVE Antibody Screen NEGATIVE 04/12/18 Range/Units 04:48 WBC (4.0-11.0) K/uL RBC (4.30-5.90) M/uL Hgb 13.6 (12.0-16.0) g/dL Hct 39.7 (36.0-46.0) % MCV (80.0-98.0) fL MCH (27.0-32.0) pg MCHC (31.0-37.0) g/dL RDW Std Deviation (28.0-62.0) fl RDW Coeff of Jeanmarie (11.0-15.0) % Plt Count (150-400) K/uL MPV (7.40-12.00) fL Nucleated RBC % /100WBC Nucleated RBCs # K/uL Cord ABG pH (7.18-7.38) Cord ABG Base Excess (-10--2) Cord VBG pH (7.25-7.45) Cord VBG Base Excess (-10--2) Blood Type Antibody Screen Med Orders - Current: Current Medications Acetaminophen (Tylenol Extra Strength) 500 mg PO Q4H PRN PRN Reason: Pain Last Admin: 04/12/18 02:45 Dose: 500 mg Acetaminophen (Tylenol Extra Strength) 1,000 mg PO Q4H PRN PRN Reason: Pain Benzocaine/Menthol (Dermoplast Pain Relief 20%-0.5% [place]) 78 gm TOP ASDIRECTED PRN PRN Reason: Perineal Comfort Measure Last Admin: 04/12/18 00:44 Dose: 78 gm Bisacodyl (Dulcolax) 10 mg RECTAL ONETIME PRN PRN Reason: Constipation Docusate Sodium (Colace) 100 mg PO BID PRN PRN Reason: Constipation Last Admin: 04/12/18 08:06 Dose: 100 mg Emollient Ointment (Lansinoh Hpa) 0 gm TOP ASDIRECTED PRN PRN Reason: Sore Nipples Ibuprofen (Motrin) 400 mg PO Q4H PRN PRN Reason: Pain Ibuprofen (Motrin) 800 mg PO Q6H PRN PRN Reason: Pain Last Admin: 04/12/18 08:06 Dose: 800 mg Methylergonovine Maleate (Methergine) 0.2 mg IM ONETIME PRN PRN Reason: Excessive Vaginal Bleeding Oxycodone HCl (Oxycodone) 5 mg PO Q2H PRN PRN Reason: Pain Last Admin: 04/12/18 02:46 Dose: 5 mg Witch Tyra (Tucks) 1 pad TOP ASDIRECTED PRN PRN Reason: comfort care Last Admin: 04/12/18 00:44 Dose: 1 pad Discontinued Medications Butorphanol Tartrate (Stadol) 1 mg IVPUSH ASDIRECTED PRN PRN Reason: Pain Carboprost Tromethamine (Hemabate Ds) 250 mcg IM ASDIRECTED PRN PRN Reason: Post Hemorrhage Tranexamic Acid 1,000 mg/ (Sodium Chloride) 110 mls @ 660 mls/hr IV ONETIME PRN PRN Reason: Bleeding Lactated Ringer's (Ringers, Lactated) 1,000 mls @ 150 mls/hr IV ASDIRECTED CHINTAN Last Admin: 04/11/18 22:57 Dose: 150 mls/hr Oxytocin/Sodium Chloride (Oxytocin 30 Unit/500 Ml-Ns) 30 unit in 500 mls @ 999 mls/hr IV TITRATE [facility] Last Admin: 04/11/18 22:51 Dose: 999 mls/hr Fentanyl/Bupivacaine HCl (Chcjsgvb-Ylrkl-Om 2 Mcg/Ml-0.125%) Confirm Administered Dose 100 mls @ as directed EP .STK-MED ONE Stop: 04/11/18 21:32 Lidocaine HCl (Xylocaine 1%) 50 ml INJECT ONETIME PRN PRN Reason: Laceration repair Methylergonovine Maleate (Methergine) 0.2 mg IM ASDIRECTED PRN PRN Reason: Post Hemorrhage Misoprostol (Cytotec) 200 mcg PO ONETIME PRN PRN Reason: Post Hemorrhage Nalbuphine HCl (Nubain) 10 mg IVPUSH ASDIRECTED PRN PRN Reason: Pain (severe 7-10) Sodium Chloride (Saline Flush) 10 ml FLUSH ASDIRECTED PRN PRN Reason: Keep Vein Open Sodium Chloride (Saline Flush) 2.5 ml FLUSH ASDIRECTED PRN PRN Reason: Keep Vein Open Sterile Water (Sterile Water For Irrigation) 1,000 ml IRR ASDIRECTED PRN PRN Reason: delivery Last Admin: 04/11/18 22:47 Dose: 1,000 ml - Problem List & Annotations (1) Vaginal delivery SNOMED Code(s): 850253880 Code(s): O80 - ENCOUNTER FOR FULL-TERM UNCOMPLICATED DELIVERY Status: Acute Current Visit: Yes - Problem List Review Problem List Initiated/Reviewed/Updated: Yes - My Orders Last 24 Hours: My Active Orders 04/11/18 19:21 Non Stress Test [RC] PER UNIT ROUTINE Up ad Mariel [RC] ASDIRECTED Vaginal Exam [RC] Click to Edit Vital Signs [RC] PER UNIT ROUTINE 04/11/18 19:57 Heart Tones [RC] CONTINUOUS Non Stress Test [RC] PER UNIT ROUTINE May Shower [RC] ASDIRECTED Notify Provider [RC] PRN Up ad Mariel [RC] ASDIRECTED Vaginal Exam [RC] PRN Vital Signs [RC] PER UNIT ROUTINE 04/11/18 20:00 Oxygen Therapy [RC] ASDIRECTED 04/11/18 23:19 Patient Status [ADT] Routine May Shower [RC] ASDIRECTED Up ad Mariel [RC] ASDIRECTED Vital Signs [RC] PER UNIT ROUTINE Acetaminophen [Tylenol Extra Strength] 1,000 mg PO Q4H PRN Acetaminophen [Tylenol Extra Strength] 500 mg PO Q4H PRN Benzocaine/Menthol [Dermoplast Pain Relief 20%-0.5% [place]] 78 gm TOP ASDIRECTED PRN Bisacodyl [Dulcolax] 10 mg RECTAL ONETIME PRN Docusate Sodium [Colace] 100 mg PO BID PRN Ibuprofen [Motrin] 400 mg PO Q4H PRN Ibuprofen [Motrin] 800 mg PO Q6H PRN Lanolin [Lansinoh HPA] See Dose Instructions TOP ASDIRECTED PRN Methylergonovine [Methergine] 0.2 mg IM ONETIME PRN Witch Tyra [Tucks] 1 pad TOP ASDIRECTED PRN oxyCODONE 5 mg PO Q2H PRN Assess Lochia [WOMSER] Per Unit Routine Assess Uterine Involution [WOMSER] Per Unit Routine Peripheral IV Discontinue [OM.PC] Routine Resuscitation Status Routine 04/11/18 23:20 Perineal Care [OM.PC] Per Unit Routine 04/12/18 00:11 Influenza Vaccine Charge [RC] .DISCHARGE 04/12/18 09:00 FLU Vacc [id number] 36MOS UP/PF [Fluzone Quad [id number] Syringe] 60 mcg IM .ONCE ONE 04/12/18 Breakfast Regular Diet [DIET] - Assessment Assessment:: I examined the patient and agree with above, continue care today and anticipate discharge tomorrow.
--- NOTE | 2018-04-13 08:15 | PCM.PNPP ---
<Kelsy Lowery - Last Filed: 04/13/18 08:09> - General Info Date of Service: 04/13/18 Functional Status: Reports: Pain Controlled, Tolerating Diet, Ambulating, Urinating - Review of Systems General: Denies: Fever, Weakness, Fatigue Pulmonary: Denies: Shortness of Breath, Pleuritic Chest Pain, Cough Cardiovascular: Denies: Chest Pain, Palpitations, Dyspnea on Exertion Gastrointestinal: Denies: Abdominal Pain Genitourinary: Denies: Dysuria - General Info Date of Service: 04/13/18 - Patient Data Vital Signs - Most Recent: Last Vital Signs Temp 36.8 C 04/13/18 05:00 Pulse 78 04/13/18 05:00 Resp 16 04/13/18 05:00 BP 124/68 04/13/18 05:00 Pulse Ox 98 04/12/18 19:32 Weight - Most Recent: 90.719 kg Med Orders - Current: Current Medications Acetaminophen (Tylenol Extra Strength) 500 mg PO Q4H PRN PRN Reason: Pain Last Admin: 04/12/18 02:45 Dose: 500 mg Acetaminophen (Tylenol Extra Strength) 1,000 mg PO Q4H PRN PRN Reason: Pain Benzocaine/Menthol (Dermoplast Pain Relief 20%-0.5% [place]) 78 gm TOP ASDIRECTED PRN PRN Reason: Perineal Comfort Measure Last Admin: 04/12/18 00:44 Dose: 78 gm Bisacodyl (Dulcolax) 10 mg RECTAL ONETIME PRN PRN Reason: Constipation Docusate Sodium (Colace) 100 mg PO BID PRN PRN Reason: Constipation Last Admin: 04/12/18 08:06 Dose: 100 mg Emollient Ointment (Lansinoh Hpa) 0 gm TOP ASDIRECTED PRN PRN Reason: Sore Nipples Ibuprofen (Motrin) 400 mg PO Q4H PRN PRN Reason: Pain Ibuprofen (Motrin) 800 mg PO Q6H PRN PRN Reason: Pain Last Admin: 04/12/18 23:28 Dose: 800 mg Methylergonovine Maleate (Methergine) 0.2 mg IM ONETIME PRN PRN Reason: Excessive Vaginal Bleeding Oxycodone HCl (Oxycodone) 5 mg PO Q2H PRN PRN Reason: Pain Last Admin: 04/12/18 02:46 Dose: 5 mg Witch Tyra (Tucks) 1 pad TOP ASDIRECTED PRN PRN Reason: comfort care Last Admin: 04/12/18 00:44 Dose: 1 pad Discontinued Medications Butorphanol Tartrate (Stadol) 1 mg IVPUSH ASDIRECTED PRN PRN Reason: Pain Carboprost Tromethamine (Hemabate Ds) 250 mcg IM ASDIRECTED PRN PRN Reason: Post Hemorrhage Tranexamic Acid 1,000 mg/ (Sodium Chloride) 110 mls @ 660 mls/hr IV ONETIME PRN PRN Reason: Bleeding Lactated Ringer's (Ringers, Lactated) 1,000 mls @ 150 mls/hr IV ASDIRECTED CHINTAN Last Admin: 04/11/18 22:57 Dose: 150 mls/hr Oxytocin/Sodium Chloride (Oxytocin 30 Unit/500 Ml-Ns) 30 unit in 500 mls @ 999 mls/hr IV TITRATE [facility] Last Admin: 04/11/18 22:51 Dose: 999 mls/hr Fentanyl/Bupivacaine HCl (Vxfkyyhb-Wpgnz-Wt 2 Mcg/Ml-0.125%) Confirm Administered Dose 100 mls @ as directed EP .STK-MED ONE Stop: 04/11/18 21:32 Lidocaine HCl (Xylocaine 1%) 50 ml INJECT ONETIME PRN PRN Reason: Laceration repair Methylergonovine Maleate (Methergine) 0.2 mg IM ASDIRECTED PRN PRN Reason: Post Hemorrhage Misoprostol (Cytotec) 200 mcg PO ONETIME PRN PRN Reason: Post Hemorrhage Nalbuphine HCl (Nubain) 10 mg IVPUSH ASDIRECTED PRN PRN Reason: Pain (severe 7-10) Sodium Chloride (Saline Flush) 10 ml FLUSH ASDIRECTED PRN PRN Reason: Keep Vein Open Sodium Chloride (Saline Flush) 2.5 ml FLUSH ASDIRECTED PRN PRN Reason: Keep Vein Open Sterile Water (Sterile Water For Irrigation) 1,000 ml IRR ASDIRECTED PRN PRN Reason: delivery Last Admin: 04/11/18 22:47 Dose: 1,000 ml - Infant Interaction Disposition, : [place] in Room with Family Infant Feeding: Breastfed ; Nursed Well Support Person: - Recovery Exam Fundal Tone: Firm Fundal Level: At Umbilicus Fundal Placement: Midline Lochia Amount: Scant Lochia Color: Rubra/Red Perineum Description: Edematous Episiotomy/Laceration: Approximated Bladder Status: Voiding - Exam General: Alert, Oriented Neck: Supple Lungs: Clear to Auscultation, Normal Respiratory Effort Cardiovascular: Regular Rate, Regular Rhythm GI/Abdominal Exam: Normal Bowel Sounds, Soft, Non-Tender, No Distention, No Mass Extremities: Normal Inspection, Normal Capillary Refill, Pedal Edema (trace) Skin: Warm, Dry, Intact - Problem List Review Problem List Initiated/Reviewed/Updated: Yes - Assessment Assessment:: PPD #2 . Minimal pain and lochia. Breast feeding well. Discharge home today. - Plan Plan:: Discharge home today. Pelvic rest for 6 weeks. Continue PNV while breast feeding. Can use OTC ibuprofen/tylenol as needed for pain. Instructed patient to call if she develops fever greater than 101 or bleeding through a large pad an hour. F/U with [facility] in 6 weeks. <Emily Chacon - Last Filed: 04/13/18 08:49> - Patient Data Vital Signs - Most Recent: Last Vital Signs Temp 36.8 C 04/13/18 05:00 Pulse 78 04/13/18 05:00 Resp 16 04/13/18 05:00 BP 124/68 04/13/18 05:00 Pulse Ox 98 04/12/18 19:32 Med Orders - Current: Current Medications Acetaminophen (Tylenol Extra Strength) 500 mg PO Q4H PRN PRN Reason: Pain Last Admin: 04/12/18 02:45 Dose: 500 mg Acetaminophen (Tylenol Extra Strength) 1,000 mg PO Q4H PRN PRN Reason: Pain Benzocaine/Menthol (Dermoplast Pain Relief 20%-0.5% [place]) 78 gm TOP ASDIRECTED PRN PRN Reason: Perineal Comfort Measure Last Admin: 04/12/18 00:44 Dose: 78 gm Bisacodyl (Dulcolax) 10 mg RECTAL ONETIME PRN PRN Reason: Constipation Docusate Sodium (Colace) 100 mg PO BID PRN PRN Reason: Constipation Last Admin: 04/12/18 08:06 Dose: 100 mg Emollient Ointment (Lansinoh Hpa) 0 gm TOP ASDIRECTED PRN PRN Reason: Sore Nipples Ibuprofen (Motrin) 400 mg PO Q4H PRN PRN Reason: Pain Ibuprofen (Motrin) 800 mg PO Q6H PRN PRN Reason: Pain Last Admin: 04/12/18 23:28 Dose: 800 mg Methylergonovine Maleate (Methergine) 0.2 mg IM ONETIME PRN PRN Reason: Excessive Vaginal Bleeding Oxycodone HCl (Oxycodone) 5 mg PO Q2H PRN PRN Reason: Pain Last Admin: 04/12/18 02:46 Dose: 5 mg Witch Tyra (Tucks) 1 pad TOP ASDIRECTED PRN PRN Reason: comfort care Last Admin: 04/12/18 00:44 Dose: 1 pad Discontinued Medications Butorphanol Tartrate (Stadol) 1 mg IVPUSH ASDIRECTED PRN PRN Reason: Pain Carboprost Tromethamine (Hemabate Ds) 250 mcg IM ASDIRECTED PRN PRN Reason: Post Hemorrhage Tranexamic Acid 1,000 mg/ (Sodium Chloride) 110 mls @ 660 mls/hr IV ONETIME PRN PRN Reason: Bleeding Lactated Ringer's (Ringers, Lactated) 1,000 mls @ 150 mls/hr IV ASDIRECTED [facility] Last Admin: 04/11/18 22:57 Dose: 150 mls/hr Oxytocin/Sodium Chloride (Oxytocin 30 Unit/500 Ml-Ns) 30 unit in 500 mls @ 999 mls/hr IV TITRATE [facility] Last Admin: 04/11/18 22:51 Dose: 999 mls/hr Fentanyl/Bupivacaine HCl (Iakedbik-Stmmv-Ik 2 Mcg/Ml-0.125%) Confirm Administered Dose 100 mls @ as directed EP .STK-MED ONE Stop: 04/11/18 21:32 Lidocaine HCl (Xylocaine 1%) 50 ml INJECT ONETIME PRN PRN Reason: Laceration repair Methylergonovine Maleate (Methergine) 0.2 mg IM ASDIRECTED PRN PRN Reason: Post Hemorrhage Misoprostol (Cytotec) 200 mcg PO ONETIME PRN PRN Reason: Post Hemorrhage Nalbuphine HCl (Nubain) 10 mg IVPUSH ASDIRECTED PRN PRN Reason: Pain (severe 7-10) Sodium Chloride (Saline Flush) 10 ml FLUSH ASDIRECTED PRN PRN Reason: Keep Vein Open Sodium Chloride (Saline Flush) 2.5 ml FLUSH ASDIRECTED PRN PRN Reason: Keep Vein Open Sterile Water (Sterile Water For Irrigation) 1,000 ml IRR ASDIRECTED PRN PRN Reason: delivery Last Admin: 04/11/18 22:47 Dose: 1,000 ml - Problem List & Annotations (1) Vaginal delivery SNOMED Code(s): 323851735 Code(s): O80 - ENCOUNTER FOR FULL-TERM UNCOMPLICATED DELIVERY Status: Acute Current Visit: Yes - Problem List Review Problem List Initiated/Reviewed/Updated: Yes - Assessment Assessment:: patient was seen and examined by me. I agree with above.
[2018-04-13 09:18] VITALS: BP 110/84
== END 2018-04-13 10:20 | disposition home or self-care (01) | DRG 560 ==
LOC: MW.OBCHECK 18:46 → MW.OB 19:26 → MW.OBCHECK 19:57 → OBSVTOIN 22:50 → MW.OB 22:51
PROVIDERS: ADMIT Obstetrics & Gynecology; ATTEND Obstetrics & Gynecology
PROC: 10E0XZZ Delivery of Products of Conception, External Approach (ICD-10-PCS; principal; 2018-04-11)
PROC: 00HU33Z Insertion of Infusion Device into Spinal Canal, Percutaneous Approach (ICD-10-PCS; 2018-04-11)
PROC: 0KQM0ZZ Repair Perineum Muscle, Open Approach (ICD-10-PCS; 2018-04-11)
DX: O70.1 Second degree perineal laceration during delivery (principal); Z3A.38 38 weeks gestation of pregnancy; Z37.0 Single live birth
CPT/HCPCS: 36415; 51702; 59025; 59409; 82803; 85014; 85018; 85027; 86850; 86900; 86901; 90686; A9270-GY; G0008; J2590; J7120